=== PATIENT | male | born 1970 | race Caucasian/White ===

== ENCOUNTER 2023-10-15 11:16 | Emergency (ER) | payer OTHER, SELFPAY ==
[2023-10-15 11:19] VITALS: BP 140/98
--- NOTE | 2023-10-15 13:16 | ED.GENMED ---
History of Present Illness
General
Chief Complaint: Back Pain
Time Seen by Provider: 10/15/23 12:56
Travel History
Have you had any contact with someone who has COVID-19?: No
Do you have any symptoms of coronavirus? Fever > 100 degrees, chills, cough, shortness of breath, sore throat, loss of taste or smell, muscle aches, or headache?: No
History of Present Illness
History of Present Illness:
53-year-old male presents the emergency department for evaluation of acute onset left flank pain that began shortly after sneezing earlier today. The pain is waxing waning in nature but is very severe when it strikes. Denies any associated chest
pain or shortness of breath. No dysuria or visible hematuria
Past History
Past History
ED Past Medical History: Other (Atrial flutter)
ED Past Surgical History: Cardiac and Orthopedic
Social History
Tobacco: Non-smoker
Alcohol: Occasional
Drug: None
Personal:
Living: with family
Review of Systems
Review of Systems
Allergies reviewed?: Yes
All Other Systems: ROS reviewed and negative except as documented in HPI and ROS
Phy Exam
Physical Exam
Physical Exam:
GEN: Well appearing, NAD, WDWN
HEENT: Oral mucosa moist, no scleral icterus
Cardiac: Regular rate
Lung: No respiratory distress, no tachypnea
Abdomen: Soft, nontender, no CVA tenderness bilaterally
MSK: No gross deformity or injuries
Skin: Good color, no pallor or jaundice, no rashes
Neuro: AO x3, moves all extremities freely
Psych: Calm, cooperative
Course
Orders/Labs/Results
Orders:
Orders
10/15/23 13:16
CT Abd/pel Without Iv Or Oral Urgent
Comment:
Reason For Exam: L flank pain
10/15/23 14:45
Ketorolac [Toradol] 15 mg IV NOW STA
10/15/23 14:52
Urinalysis Reflex To Culture Urgent
Date Specimen was Collected: 10/15/23
Time Specimen was Collected: 14:32
Urine Microscopic Reflex Cult Urgent
Abnormal Lab Results
10/15/23
14:52
Ur Occult Blood Reflex 4+ A
(Negative)
Urine RBC 30-40 A /HPF
(0-2)
Vital Signs
Initial and Last Documented VS:
Initial Vital Signs
Temp Pulse Resp BP Pulse Ox
98.3 F 67 16 140/98 98
10/15/23 11:19 10/15/23 11:19 10/15/23 11:19 10/15/23 11:19 10/15/23 11:19
Last Documented Vital Signs
Temp Pulse Resp BP Pulse Ox
98.3 F 67 16 140/98 98
10/15/23 11:19 10/15/23 11:19 10/15/23 11:19 10/15/23 11:19 10/15/23 11:19
MDM/Problems Addressed
MDM/Problems Addressed:
Patient identified to have a left proximal ureteral stone. His pain is well-controlled in the emergency department and there is no indication for urinary tract infection. Will treat supportively with NSAIDs and Flomax, discussed return precautions
*Critical Care Note
Total Time (30-74mins, 75-104mins- exclusive of procedures): Not Applicable
ED Attending Note
-
Portions of this chart may have been created with voice recognition software.� Occasional wrong word or��sound alike� substitutions may have occurred due to the inherent limitations of voice recognition software.
Discharge Plan
Departure
Patient Disposition: Home (Routine Discharge)
Date of Disposition: 10/15/23
Time of Disposition: 15:15
Patient with high blood pressure during this ER visit?: No
Discharge Problem:
Ureterolithiasis
Instructions: Kidney Stone, Adult ED
Prescriptions:
New
ketorolac 10 mg tablet
10 mg PO Q8H Qty: 15 0RF
Rx Instructions:
maximum total duration of 5 days from all oral, intranasal, or parenteral formulations
tamsulosin [Flomax] 0.4 mg capsule
0.4 mg PO DAILY Qty: 10 0RF
No Action
apixaban [Eliquis] 5 MG tablet
5 mg PO BID Qty: 30 0RF
metoprolol succinate 50 MG tablet extended release 24 hr
50 mg PO DAILY
pantoprazole 40 MG tablet,delayed release (DR/EC)
40 mg PO DAILY
Referrals:
Kennedy Mccarty MD [Family Provider] -
Activity Restrictions/Additional Instructions:
Return if you develop a fever or severe pain
Interventions
Interventions:
*Risk Screen - Suicide Last Done: 10/15/23 11:19
*General Assessment Last Done: 10/15/23 11:19
*Neglect/Abuse Screening Last Done: 10/15/23 11:19
ED- Fall Risk Assessment Last Done: 10/15/23 15:52
*Nursing Disposition Last Done: 10/15/23 15:52
ED-Musculoskeletal Assessment Last Done: 10/15/23 11:54
Discharge Date and Time
Discharge Date/Time: 10/15/23 15:53
Print Language: BELARUSIAN
[2023-10-15] MEDS: TORADOL 15 MG IV (14:51)
[2023-10-15 15:01] LABS: Urine Albumin Negative (Neg - Trace); Urine Bilirubin Negative (Negative); Urine Character Clear (Clear); Urine Color Yellow; Urine Glucose Negative (Negative); Urine Ketone Negative (Negative); Urine Leukocyte Negative (Negative); Urine Nitrite Negative (Negative); Urine Occult Blood 4+ (Negative); Urine Specific Gravity 1.015 (<1.030); Urine Urobilinogen Negative (Neg - 1+)
[2023-10-15 15:30] LABS: Urine Red Blood Cell 30-40 /HPF (0-2); Urine Squamous Cell 0-2 /LPF (Few)
[2023-10-15 15:31] LABS: Urine White Cell 0-2 /HPF (0-5)
== END 2023-10-15 15:53 | disposition home or self-care (01) ==
LOC: EMR 11:16
PROVIDERS: Physician Assistant; EMERGENCY PHYSICIAN Emergency Medicine; FAMILY PHYSICIAN Internal Medicine
DX: N20.1 Calculus of ureter (principal); I48.92 Unspecified atrial flutter
CPT/HCPCS: 99284; 96374; 74176; 81003; 81015

== ENCOUNTER 2023-10-22 11:53 | Emergency (ER) | payer OTHER, SELFPAY ==
--- NOTE | 2023-10-22 11:58 | ED.GENMED ---
History of Present Illness
General
Chief Complaint: Flank Pain
Source: patient
Exam Limitations: none
Time Seen by Provider: 10/22/23 11:55
History of Present Illness
History of Present Illness:
See MDM
Past History
Past History
ED Past Medical History: Other (Atrial flutter)
ED Past Surgical History: Cardiac and Orthopedic
Social History
Tobacco: Non-smoker
Alcohol: Occasional
Drug: None
Personal:
Living: with family
Phy Exam
Physical Exam
Physical Exam:
See MDM
Course
Orders/Labs/Results
Orders:
Orders
10/22/23 11:55
HYDROmorphone [Dilaudid] 1 mg .ROUTE .STK-MED ONE
Ondansetron Injectable [Zofran] 4 mg .ROUTE .STK-MED ONE
10/22/23 11:56
Iohexol [Omnipaque] See Protocol PO NOW STA
10/22/23 12:01
CT Abd/pel Without Iv Or Oral Urgent
Comment:
Reason For Exam: known left ureteral stone, worsening L flank pain
10/22/23 12:06
Complete Blood Count/With Diff Urgent
Comprehensive Metabolic Panel Urgent
10/22/23 12:20
Urinalysis Reflex To Culture Urgent
Date Specimen was Collected: 10/22/23
Time Specimen was Collected: 12:17
Urine Microscopic Reflex Cult Urgent
10/22/23 12:23
HYDROmorphone [Dilaudid] 1 mg IV NOW STA
Ondansetron Injectable [Zofran] 4 mg IV NOW STA
Abnormal Lab Results
10/22/23 10/22/23
12:06 12:20
RBC 4.67 L 10^6/uL
(4.70-6.10)
Absolute Lymphs (auto) 0.7 L 10^3/uL
(1.2-3.4)
Neutrophils % 77.9 H %
(42.2-75.2)
Lymphocytes % 13.2 L %
(20.5-51.1)
Carbon Dioxide 21 L mmol/L
(22-30)
Glucose 153 H mg/dl
(70-99)
Urine Ketones Trace A
(Negative)
Ur Occult Blood Reflex 4+ A
(Negative)
Urine RBC >100 A /HPF
(0-2)
Urine Bacteria (Reflex) Few A
(Negative)
10/22/23 12:06
10/22/23 12:06
Vital Signs
Initial and Last Documented VS:
Initial Vital Signs
Temp Pulse Resp BP Pulse Ox
99.4 F 72 18 142/84 94
10/22/23 12:25 10/22/23 12:25 10/22/23 12:25 10/22/23 12:25 10/22/23 12:25
Last Documented Vital Signs
Temp Pulse Resp BP Pulse Ox
99.4 F 72 18 142/84 94
10/22/23 12:25 10/22/23 12:25 10/22/23 12:25 10/22/23 12:25 10/22/23 12:25
MDM/Problems Addressed
Differential Diagnosis Includes:
HPI and MDM Narrative:
53-year-old male presenting with worsening left flank pain going to left groin. He was recently seen last week and diagnosed with ureteral kidney stone on the left. Patient states the Toradol is not helping. He took a hydrocodone prior to
arrival. EMS provided fentanyl. Patient presents moaning in pain. Patient given dose of Dilaudid and Zofran. Will repeat CT and discussed case with urology
Physical exam
General: Uncomfortable, moaning in pain, holding left side
HEENT: protecting airway
Neck: appears supple
CV: No evidence of cyanosis
Resp: No accessory muscle use
Abd: Non-distended. Tenderness to left flank and left lower quadrant
Extremities: No deformities
Neuro: alert
Psych: Anxious
Skin: Intact
Problems Addressed including Acute and Chronic Conditions affecting care:
1. Left flank pain
Acuity: acute
Prognosis: unstable
Details: Pain persists despite Toradol, hydrocodone and fentanyl. Will give Dilaudid and repeat CT
Updates
On multiple reassessments, pain has been drastically improved. He only required 1 dose of [address] is consistent with recently passed stone versus stone in the UVJ. Regardless, patient feels going home discussed expectant management
Differential Diagnosis (but not limited to): Pyelonephritis, kidney stone, diverticulitis
Testing considered: CT with contrast
Drug therapy (if applicable): OTC meds, please see d/c instruction regarding Rx drugs
Amount and/or Complexity of Data Reviewed
Clinical info obtained from: Patient
External data reviewed: Recent CT confirming kidney stone
Labs I independently reviewed (but not limited to): WBC normal
Radiology: The CT scan was personally and independently reviewed. In addition, official CT report reviewed.
Pulse Ox: not hypoxic
EKG independently reviewed: N/A
Technology Methodology Consultant: N/A
Critical Care: N/A
Risk of Complication:
Social Determinants of health: Good social support
Discussed with other providers: N/A
Escalation of Care includes Admit/Obs: After being observed in the Emergency Department, pt stable for discharge.
Occasional wrong word or 'sound a like' substitutions may have occurred due to the inherent limitations of voice recognition software. Read the chart carefully and recognize, using context, where substitutions have occurred.
*Critical Care Note
Total Time (30-74mins, 75-104mins- exclusive of procedures): Not Applicable
ED Attending Note
-
Portions of this chart may have been created with voice recognition software.� Occasional wrong word or��sound alike� substitutions may have occurred due to the inherent limitations of voice recognition software.
Discharge Plan
Departure
Patient Disposition: Home (Routine Discharge)
Date of Disposition: 10/22/23
Time of Disposition: 13:59
Patient with high blood pressure during this ER visit?: Yes
Discharge Problem:
Kidney stone on left side
Instructions: Kidney Stones (DC), BLOOD PRESSURE
Prescriptions:
No Action
apixaban [Eliquis] 5 MG tablet
5 mg PO BID Qty: 30 0RF
metoprolol succinate 50 MG tablet extended release 24 hr
50 mg PO DAILY
pantoprazole 40 MG tablet,delayed release (DR/EC)
40 mg PO DAILY
ketorolac 10 mg tablet
10 mg PO Q8H Qty: 15 0RF
Rx Instructions:
maximum total duration of 5 days from all oral, intranasal, or parenteral formulations
tamsulosin [Flomax] 0.4 mg capsule
0.4 mg PO DAILY Qty: 10 0RF
Referrals:
Kennedy Mccarty MD [Family Provider] -
Activity Restrictions/Additional Instructions:
Please return for any worsening symptoms.
You may return at any time if you have further concerns.
Please follow up with your doctor at the first available appointment, preferably this week.
Please call your urologist. As we discussed, the stone is either in the bladder or just about to enter the bladder. Continue to strain your urine.
Thank you for choosing [facility].
Interventions
Interventions:
*Risk Screen - Suicide Last Done: 10/22/23 11:55
*General Assessment Last Done: 10/22/23 11:55
*Neglect/Abuse Screening Last Done: 10/22/23 11:55
ED- Fall Risk Assessment Last Done: 10/22/23 12:03
*ED COVID-19 Vaccine History Last Done: 10/22/23 11:55
[place]-Gzqfpc-Ckywonvdcl Assessment Last Done: 10/22/23 12:03
ED-Male Genitourinary Assessment Last Done: 10/22/23 12:03
Discharge Date and Time
Print Language: CANADIAN
[2023-10-22 12:02] VITALS: BMI 30.4
[2023-10-22 12:18] LABS: % Basophils 0.4 % (0-2); % Eosinophils 0.6 % (0-6); % Immature Granulocytes 0.2 % (0-0.5); % Lymphocytes 13.2 % (20.5-51.1); % Monocytes 7.7 % (1.7-9.3); % Neutrophils 77.9 % (42.2-75.2); Absolute Lymphocytes 0.7 10^3/uL (1.2-3.4); Absolute Monocytes 0.4 10^3/uL (0.1-0.6); Absolute Neutrophils 4.1 10^3/uL (1.4-6.5); Hematocrit 40.3 % (39.0-52.0); Hemoglobin 14.3 g/dL (13.0-18.0); Mean Corp Hgb Conc. 35.5 g/dL (33.0-37.0); Mean Corpuscular Hgb 30.6 pg (27.0-31.0); Mean Corpuscular Volume 86.3 fL (80.0-94.0); Mean Platelet Volume 9.9 fL (7.4-10.4); Nucleated Red Blood Cells % 0 % (-); Platelet Count 170 10^3/uL (130-400); Red Blood Cell Count 4.67 10^6/uL (4.70-6.10); Red Cell Dist. Width 11.9 % (11.5-14.5); White Blood Cell Count 5.2 10^3/uL (4.8-10.8)
[2023-10-22] MEDS: DILAUDID 1 MG IV (12:23)
[2023-10-22] MEDS: ZOFRAN 4 MG IV (12:24)
[2023-10-22 12:25] VITALS: BP 142/84
[2023-10-22 12:35] LABS: Urine Albumin Negative (Neg - Trace); Urine Bilirubin Negative (Negative); Urine Character Clear (Clear); Urine Color Yellow; Urine Glucose Negative (Negative); Urine Ketone Trace (Negative); Urine Leukocyte Negative (Negative); Urine Nitrite Negative (Negative); Urine Occult Blood 4+ (Negative); Urine Urobilinogen Negative (Neg - 1+)
[2023-10-22 12:41] LABS: ALT (SGPT) 32 U/L (0-50); AST (SGOT) 28 U/L (17-59); Albumin 4.2 g/dl (3.5-5.0); Alkaline Phosphatase 62 U/L (38-126); Blood Urea Nitrogen 16 mg/dl (9-20); Calcium 9.6 mg/dl (8.4-10.2); Carbon Dioxide 21 mmol/L (22-30); Chloride 107 mmol/L (98-107); Estimated Creatinine Clearance 96 ml/min; Glucose 153 mg/dl (70-99); Potassium 4.2 mmol/L (3.5-5.1); Sodium 139 mmol/L (135-145); Total Bilirubin 0.8 mg/dl (0.2-1.3); Total Protein 6.7 g/dl (6.3-8.2); eGFR > 60.00
[2023-10-22 12:45] LABS: Urine Squamous Cell 0-2 /LPF (Few)
[2023-10-22 12:46] LABS: Urine Red Blood Cell >100 /HPF (0-2)
[2023-10-22 12:47] LABS: Urine Bacteria Few (Negative)
[2023-10-22 14:19] VITALS: BP 139/75
== END 2023-10-22 14:21 | disposition home or self-care (01) ==
LOC: EMR 11:53
PROVIDERS: EMERGENCY PHYSICIAN Student in an Organized Health Care Education/Training Program; FAMILY PHYSICIAN Internal Medicine
DX: N20.0 Calculus of kidney (principal)
CPT/HCPCS: 99284; 96374; 96375; 74176; 80053; 81003; 81015; 85025